=== PATIENT | male | born 1950 | race Caucasian/White ===

== ENCOUNTER 2017-05-07 11:24 | Emergency (ER) ==
[2017-05-07 11:29] VITALS: BP 182/75; TEMP 96.5; BMI 22.1
--- NOTE | 2017-05-07 12:34 | US ---
EXAM: Scrotal ultrasound. History: Left testicular palpable abnormality. Technique: Multiple sonographic images through the scrotum were obtained. Color duplex Doppler was used to interrogate vascular flow. Findings: The right testicle measures 4.4 cm x 1.9 cm x 2.8 cm. Blood flow is documented within the right lisette ticle. No right intratesticular masses are identified. Right epididymis is not hyperemic. Small l eft hydrocele. The left testicle measures 3.5 cm x 2.0 cm x 2.8 cm. Blood flow is documented within the left testi mathieu. No left intratesticular masses are identified. The left epididymis is not hyperemic. Adjacent to the left lateral testicle within the scrotal sac, there is a 2.0 cm x 1.5 cm x 1.6 cm hy poechoic area with surrounding hypervascularity. Small left hydrocele. Left greater than right scrotal skin thickening. Impression: 1. Area of fluid with surrounding hypervascularity within the left scrotal sac, suspicious for absce ss. 2. No abnormality of the testicles. 3. Left greater than right bilateral scrotal skin thickening suggesting cellulitis.
[2017-05-07] MEDS ORDERED: LIDOCAINE 1 % AMP 5 ML (SUTURES) SUBCUT STA (12:56)
--- NOTE | 2017-05-07 12:56 | ED.PDOC ---
General ED Provider: Dr. ANAM BILLINGSLEY-ER Chief Complaint: Abscess Stated Complaint: alphonso got this thing on my scrotum Time Seen by Physician: 11:30 Mode of Arrival: Walk-In Information Source: Patient Exam Limitations: No limitations Nursing and Triage Documentation Reviewed and Agree: Yes Complaint Exam - Complaint/Exam Patient Complains of: Reports: Scrotal swelling Onset/Duration: 3 days Symptoms Are: Still present Timing: Constant Initial Severity: Mild Current Severity: Moderate Location of Pain: Reports: Left, Scrotum Character: Reports: Dull Aggravating: Reports: Palpation Alleviating: Reports: None Associated Signs and Symptoms: Reports: Scrotal pain, Scrotal swelling. Denies : Diaphoresis, Back pain, Fever, Hematuria, Dysuria, Constipation, Blood in stool, Rectal pain, Appetite change, Vomiting, Penile swelling, Penile discharge , Decreased urine output, Increased urine frequency, Increased thirst, Decreased activity, Lethargy Testicular Torsion Risk Factors: Reports: None Surgical Obstruction Risk Factors: Reports: None Abdominal Findings: Present: None Genitalia Exam: Present: Scrotal swelling Differential Diagnoses: Other Review of Systems - Review Of Systems Constitutional: Reports: No symptoms Eyes: Reports: No symptoms Ears, Nose, Mouth, Throat: Reports: No symptoms Respiratory: Reports: No symptoms Cardiac: Reports: No symptoms GI: Reports: No symptoms : Reports: Other (scrotal mass) Musculoskeletal: Reports: No symptoms Skin: Reports: No symptoms Neurological: Reports: No symptoms Endocrine: Reports: No symptoms Hematologic/Lymphatic: Reports: No symptoms All Other Systems: Reviewed and Negative Past Medical History - Past Medical History Previously Healthy: No Endocrine: Reports: None Cardiovascular: Reports: Hypertension Respiratory: Reports: COPD Hematological: Reports: Anemia Gastrointestinal: Reports: None Genitourinary: Reports: None Neuro/Psych: Reports: None Musculoskeletal: Reports: None 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) - Surgical History General Surgical History: Reports: Appendectomy, Orthopedic, Back Surgery (neck ) - Family History Family History: Reports: None - Social History Smoking Status: Former smoker Hx Substance Use: No Alcohol Screening: None Lives: With family Physical Exam - Physical Exam Appearance: Well-appearing, No pain distress, Well-nourished Pain Distress: Mild Eyes: ROGELIO ENT: Ears normal, Nose normal, Oropharynx normal Neck: Supple Respiratory: Airway patent, Breath sounds clear, Breath sounds equal, Respirations nonlabored Cardiovascular: RRR, Pulses normal, No rub, No murmur GI/: Soft, Nontender, Bowel sounds normal, No Organomegaly, Mass (3cm soft fluctuant mass left scotum) Musculoskeletal: Normal strength, ROM intact, No edema, No calf tenderness Skin: Warm Neurological: Sensation intact, Motor intact, Reflexes intact, Cranial nerves intact, Alert, Oriented Psychiatric: Affect appropriate, Mood appropriate Interpretation - Radiology Interpretation Radiology Interpretation By: Radiologist Radiology Results: Positive Exam Interpreted: Other Procedures - Incision and Drainage Site: left scrotum Instrument Used: 15 Blade I & D Procedure: Yes: Hibiclens Prep Lidocaine Used: Yes Type of Drainage: Present: Pus, Blood Irrigated: No Progress: d/w with dr contreras--he advised to go ahead and drain the abscess--he consents --i used 1cc of lidocaine without epi to anesthetize the scrotum--1 15 blade used to open the abscess--5cc of purulent material drained and 7cm of medicated 1/2 inch packing applied and dressing applied Re-Evaluation - Re-Evaluation Time of Re-Evaluation: 13:11 Status: Improved Vital Signs Stable: Yes Pain Level: 1 Appearance: NAD Lungs: Clear Skin: Warm and Dry Neuro: Alert and Oriented X3 CV: RRR Physician Notification - Case Discussed Physician Notified: dr contreras--he advised to go ahead and drain the abscess and he would recheck Time of Notification: 13:00 Critical Care Note - Critical Care Note Total Time (mins): 0 Course - Course Orders, Labs, Meds: Orders Category Date Time Status WOUND CULTURE Stat LAB 05/07/17 12:56 Uncollected Lidocaine HCl/Pf [Lidocaine 1 % Amp 5 ml (Sutures)] MEDS 05/07/17 12:57 Discontinued 5 ml .ROUTE .STK-MED ONE Lidocaine HCl/Pf [Lidocaine 1 % Amp 5 ml (Sutures)] MEDS 05/07/17 12:56 Stat 5 ml SUBCUT ONCE STA ULTRASOUND SCROTUM [U/S SCROTUM] Stat RADS 05/07/17 11:34 Completed Medications Discontinued Medications Generic Name Dose Route Start Last Admin Trade Name Freq PRN Reason Stop Dose Admin Lidocaine HCl 5 ml 05/07/17 12:56 Lidocaine 1 % Amp 5 Ml (Sutures) SUBCUT 05/07/17 12:57 ONCE STA Vital Signs: Temp Pulse Resp BP Pulse Ox 05/07/17 11:24 96.5 F L 71 16 182/75 H 96 Departure - Departure Time of Disposition: 13:12 Disposition: HOME SELF-CARE Discharge Problem: Abscess Instructions: Abscess (ED) Condition: Good Pt referred to PMD for follow-up: Yes Additional Instructions: minocin 100mg bid x 7days--norco 5mg q 4hrs prn pain#10--f/u with dr contreras tomorrow as arranged Allergies/Adverse Reactions: Allergies No Known Allergies Allergy (Unverified 05/07/17 11:31) Home Medications: Ambulatory Orders Lisinopril [Zestril] 10 mg PO DIRECTED 10/11/15 Disposition Discussed With: Patient
[2017-05-07] MEDS ORDERED: LIDOCAINE 1 % AMP 5 ML (SUTURES) ONE (12:57)
== END 2017-05-07 13:30 | disposition home or self-care (01) ==
LOC: ED 11:24
DX: N49.2 Inflammatory disorders of scrotum (principal); I10 Essential (primary) hypertension
CPT/HCPCS: 87070; 99283

== ENCOUNTER 2024-07-10 19:59 | Inpatient (IN) ==
--- NOTE | 2024-07-10 20:46 | ED.PDOC ---
General ED Provider: Dr. URVASHI YAO MD Chief Complaint: Non-specific Complaint Stated Complaint: History obtained from the daughter as well as the patient who has a history of multiple CVAs x 3, hypertension, heart disease, states over the past 4 to 5 days has had unsteady gait frequent falls due to low blood pressure. Daughter states she held off giving his blood pressure medicine lisinopril 20 mg daily, Coreg 4 mg twice daily and amlodipine 10 mg daily. Patient denies head injury neck pain but complains of lower back pain and left hip pain. Has a chronic cough due to longstanding smoking history denies dyspnea, chest pain, diaphoresis. Patient states he has had frequent falls sustaining multiple abrasions to both forearms elbows. Time Seen by Provider: 07/10/24 20:19 Mode of Arrival: Wheelchair Information Source: Patient and Family Exam Limitations: Clinical condition Primary Care Provider: ANAM BILLINGSLEY Nursing and Triage Documentation Reviewed and Agree: Yes What is Opioid Naive?: *Opioid Naive implies the patient is not already taking opioids or not chronically receiving opioids on a daily basis. *PRN dosing is not "usually" associated with tolerance. *Patients are at higher risk of over-sedation and aspiration. What is Opioid Tolerant?: *Opioid Tolerance implies less than the expected response to an opioid. *Acquired tolerance is defined by the patient taking 60mg of oral morphine daily (or equianalgesic dose of another opioid) for 1 week or more. *Often associated with chronic pain. *May take more than usual dose to achieve desired pain control. Review of Systems Review Of Systems Constitutional: Reports Weakness Eyes: Reports No symptoms Ears, Nose, Mouth, Throat: Reports No symptoms Respiratory: Reports Cough (Chronic cough) Cardiac: Reports No symptoms GI: Reports No symptoms : Reports No symptoms Musculoskeletal: Reports Joint pain (Left hip pain, frequent falls skin tears to both forearms and elbow) Skin: Reports No symptoms Neurological: Reports No symptoms Endocrine: Reports No symptoms Hematologic/Lymphatic: Reports No symptoms All Other Systems: Reviewed and Negative [facility] Medical History (Updated 07/10/24 @ 22:33 by URVASHI YAO MD) Hypertension I10 - Essential (primary) hypertension (ICD-10) AAA (abdominal aortic aneurysm) I71.4 - Abdominal aortic aneurysm, without rupture (ICD-10) Social History Smoking and tobacco status: Current every day smoker Surgical History History of musculoskeletal system surgery right shoulder surgery C-5 surgery Z98.890 - Other specified postprocedural states (ICD-10) Status post appendectomy Z90.49 - Acquired absence of other specified parts of digestive tract (ICD- 10) Physical Exam Physical Exam Appearance: Reports Ill-appearing Ill-appearing: Mild Pain Distress: None Eyes: Reports ROGELIO and Conjunctiva clear ENT: Reports Ears normal, Nose normal and Oropharynx normal Neck: Supple Respiratory: Reports Airway patent, Breath sounds clear (Course breath sounds left base) and Breath sounds equal Cardiovascular: Reports RRR, Pulses normal, No rub and No murmur Musculoskeletal: Reports Limited ROM (Full range of motion bilateral hips without pain discomfort. Patellar reflex intact finger-nose [id number].) and Other (There are multiple skin tears of the pus 2051, 3 there is2 cm in distal right biceps medial aspect.) Skin: Reports Warm, Dry and Normal color Neurological: Reports Sensation intact, Motor intact, Reflexes intact, Cranial nerves intact, Alert and Oriented (GCS-15) Psychiatric: Reports Affect appropriate and Mood appropriate Critical Care Note Critical Care Note Total Critical Care Time (mins): 30 Course Course 07/10/24 21:10 07/10/24 21:10 Orders, Labs, Meds: Lab Review 07/10/24 07/10/24 07/10/24 21:03 21:10 21:15 WBC 10.02 RBC 4.92 Hgb 14.1 Hct 41.8 L MCV 85.0 MCH 28.7 MCHC 33.7 RDW Coeff of [place] 14.9 H Plt Count 186 Immature Gran % (Auto) 0.4 Neut % (Auto) 66.5 Lymph % (Auto) 22.3 [place] % (Auto) 8.3 Eos % (Auto) 2.0 Baso % (Auto) 0.5 Neut # (Auto) 6.7 Lymph # (Auto) 2.2 [place] # (Auto) 0.8 Eos # (Auto) 0.2 Baso # (Auto) 0.1 Immature Gran # (Auto) 0.0 PT 12.7 H INR 1.23 VBG pH 7.45 H VBG pCO2 36 L VBG pO2 52 H VBG HCO3 25.0 VBG O2 Saturation 88.1 H Sodium 131.0 L Potassium 4.52 Chloride 97.0 L Carbon Dioxide 20.9 L Anion Gap 17.62 BUN 57.1 H Creatinine 2.75 H Estimated GFR (MDRD) 23.00 BUN/Creatinine Ratio 20.76 Glucose 134.1 H Calcium 8.89 Magnesium 2.16 Iron 71.1 TIBC 129 L % Saturation 55 Total Bilirubin 0.78 AST 18.0 ALT 13.2 Alkaline Phosphatase 58.7 Troponin I 0.042 NT-Pro-B Natriuret Pep 1410 H Total Protein 6.91 Albumin 4.15 Globulin 2.76 Albumin/Globulin Ratio 1.50 SARS CoV-2 RNA Rapid DEONTE Negative Orders Category Date Time Status EKG-(ED ONLY) Stat CARDIO 07/10/24 20:48 Ordered Ticket Puller [ED VP GLOBAL APPLIED] .ONCE EMERGENCY 07/10/24 20:48 Active CBC W/ AUTO DIFF Stat LAB 07/10/24 21:10 Completed CMP [COMPREHENSIVE METABOLIC PANEL] Stat LAB 07/10/24 21:10 Completed COVID [SARS COV-2 RNA RAPID DEONTE] Stat LAB 07/10/24 21:15 Completed INR [PT WITH INR] Stat LAB 07/10/24 21:10 Completed IRON AND TIBC Stat LAB 07/10/24 21:10 Completed MAGNESIUM Stat LAB 07/10/24 21:10 Completed PROBNP ED [NT-PROBNP(ED)] Stat LAB 07/10/24 21:10 Completed TROPONIN I Stat LAB 07/10/24 21:10 Completed URINALYSIS C & S IF INDICATED Stat LAB 07/10/24 20:45 Uncollected VENOUS BLOOD GAS Stat LAB 07/10/24 21:03 Completed Sodium Chloride 0.9% [Sodium Chloride] 1,000 ml Meds 07/10/24 20:48 Active IV 500 mls/hr CHEST, 1V AP ONLY Stat RADS 07/10/24 20:[address] CERVICAL SPINE W/O CONTRAST Stat RADS 07/10/24 20:[address] HEAD W/O CONTRAST Stat RADS 07/10/24 20:[address] LUMBAR SPINE W/O CONTRAST Stat RADS 07/10/24 20:[address] PELVIS W/O CONTRAST Stat RADS 07/10/24 20:45 Completed Medications Generic Name Dose Route Start Last Admin Trade Name Freq PRN Reason Stop Dose Admin Sodium Chloride 1,000 mls @ 500 mls/hr 07/10/24 20:48 07/10/24 21:44 Sodium Chloride IV 07/10/24 22:47 500 mls/hr .Q2H ONE Administration Vital Signs: Temp Pulse Resp BP Pulse Ox 07/10/24 20:03 98.3 F 83 18 93/49 L 99 Discharge Plan Discharge Patient Disposition: ADMITTED INPATIENT Discharge Problem: Acute hypotension, Acute kidney injury Prescriptions: No Action lisinopril 10 MG tablet 20 mg PO DAILY alprazolam 0.5 mg tablet 0.5 mg PO ONCE PRN (Reason: anxiety) alprazolam 1 mg tablet 1 mg PO ONCE PRN (Reason: anxiety) carvedilol 12.5 mg tablet 25 mg PO BID Linzess 145 mcg capsule 145 mcg PO DAILY PRN (Reason: constipation) amlodipine 5 mg Tablet 10 mg PO DAILY atorvastatin 20 mg tablet 20 mg PO QDAY clopidogrel [Plavix] 75 mg tablet 75 mg PO QDAY Did you review [place] ACTIVE DIRECTORY SPECIALIST for ALL controlled substances?: Not Applicable ED Provider: URVASHI YAO Condition: Stable Physician Progress Note: History obtained from the daughter of the patient patient with history of CVA x 3, hypertension, dysarthria, daughter states over the past 3 to 4 days patient has had frequent falls due to his blood pressure being low. Patient denies headache head injury loss of consciousness neck pain or complaint lower back pain. Patient also complains left hip pain. Denies chest pain diaphoresis palpitations, nausea vomiting diarrhea. 2058-EKG interpretation by myself is consistent with normal sinus rhythm with sinus arrhythmia rate of 76, biatrial lodgment left axis deviation nonspecific ST wave changes noted laterally. Portable chest x-ray interpretation per radiologist consistent with no acute disease, prosthetic aortic valve and aortic stent are grossly unchanged CT scan of the head without intravenous contrast rotation per radiologist shows no acute intracranial normality there is encephalomalacia secondary to remote strokes right frontal and left occipital lobes. Remote corner insult bilateral caudate nuclei. There is severe involutional change of the brain suspecting sequela of microvascular disease. Cervical spine CT without intravenous contrast interpretation radiologist consistent with no acute fracture or traumatic malalignment. There is extensive bilateral carotid arterial vascular calcifications. There is severe degenerative disc disease most pronounced at C5-C6 and C6-C7 with small posterior disc osteophyte complexes. Lumbar spine CT without intravenous contrast interpretation by the radiologist consistent no acute osseous abnormality lumbar spine. There is sent bifurcated aortic stent graft. 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 Laboratory data reviewed CBC and CMP troponin BNP all within normal limit except for a BUN of 57, creatinine 2.7, GFR 23, troponin 0.042 and BNP of 1410. Initial blood pressure 93/49 pulse 83 and had IV hydration of 5 mL normal saline over 1 hour blood pressure improved with blood pressure 117/60 Differential diagnosis: 1) hypotension 2) acute kidney injury Discussed with hospitalist Bebe Pisano at 2230 for inpatient admission
[2024-07-10 21:13] LABS: BASOPHILS # (AUTO) 0.1 K/uL (0-0.2); BASOPHILS % (AUTO) 0.5 % (0.0-3.0); EOSINOPHILS # (AUTO) 0.2 K/ul (0.0-0.7); HEMATOCRIT 41.8 % (42.0-52.0); HEMOGLOBIN 14.1 g/dl (14.0-18.0); IMMATURE GRANULOCYTE % (AUTO) 0.4 % (0.0-5.0); LYMPHOCYTES # (AUTO) 2.2 K/uL (0.60-3.4); LYMPHOCYTES % (AUTO) 22.3 (10.0-50.0); MEAN CORPUSCULAR HEMOGLOBIN 28.7 pg (27.0-31.0); MEAN CORPUSCULAR HGB CONC 33.7 (31.8-35.4); MONOCYTES # (AUTO) 0.8 K/uL (0.4-2.0); MONOCYTES % (AUTO) 8.3 (0-10); NEUTROPHILS # (AUTO) 6.7 K/ul (2.0-6.9); NEUTROPHILS % (AUTO) 66.5 % (42.2-75.2); PLATELET COUNT 186 10^3/uL (140-440); RDW COEFFICIENT OF VARIATION 14.9 % (11.6-14.8); RED BLOOD COUNT 4.92 10^6/ul (4.70-6.10); WHITE BLOOD COUNT 10.02 K/ul (4.2-10.2)
[2024-07-10 21:16] LABS: VBG OXYGEN SATURATION 88.1 (60-80); VBG PH 7.45 (7.30-7.40)
[2024-07-10 21:22] LABS: PROTHROMBIN TIME 12.7 SEC (9.3-11.0)
[2024-07-10 21:25] LABS: IRON 71.1 ug/dL (49-181)
[2024-07-10 21:27] LABS: ALANINE AMINOTRANSFERASE 13.2 U/L (0-50); ALBUMIN 4.15 g/dL (3.5-5.0); ALKALINE PHOSPHATASE 58.7 U/L (56-119); BILIRUBIN,TOTAL 0.78 mg/dL (0.2-1.3); BLOOD UREA NITROGEN 57.1 mg/dL (9-20); CALCIUM 8.89 mg/dL (8.4-10.2); CARBON DIOXIDE 20.9 mmol/L (22-30.0); CREATININE 2.75 mg/dL (0.60-1.10); GLUCOSE 134.1 mg/dL (74-106); POTASSIUM 4.52 mmol/L (3.5-5.1); TOTAL PROTEIN 6.91 g/dL (6.3-8.2)
--- NOTE | 2024-07-10 21:29 | DI ---
EXAM: CHEST RADIOGRAPH TECHNIQUE: Single frontal chest radiograph. COMPARISON: 11/13/2022 HISTORY: Chronic cough FINDINGS: The heart and mediastinum are normal. The lungs and pleural spaces appear within normal limits. No acute abnormality of the bones or soft tissues is identified. The prosthetic aortic valve and aort ic stent are grossly unchanged. IMPRESSION: No evidence of acute disease.
--- NOTE | 2024-07-10 21:34 | CT ---
EXAM: CT OF THE BRAIN WITHOUT CONTRAST CLINICAL INDICATION: Headache. COMPARISON: None. PROCEDURE: Contiguous axial tomographic sections were obtained from the skull base to the vertex. FINDINGS: There is encephalomalacia at the mesial right temporal lobe as well as at the superior nav al right frontal lobe consistent with remote insult/strokes at those locations. No acute intracranial hemorrhage, extra-axial fluid collection, hydrocephalus, mass effect, or midline shift. The ventricl es, cisterns and sulci are normal. Chaparro-white differentiation is maintained. There are severe patchy areas of hypodensity in the periventricular white matter, nonspecific but mos t commonly encountered in the setting of chronic microvascular disease. Sub-centimeter hypodense foc i consistent with remote lacunar insults bilateral caudate heads. The visualized paranasal sinuses and mastoid air cells are clear. The visualized portions of the don bes and orbits appear normal. No acute calvarial abnormalities are seen. IMPRESSION: 1. No acute intracranial abnormality. 2. 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 Remote lacu terrence insult bilateral caudate nuclei. 3. Severe involutional change of the brain and suspected sequelae of microvascular disease. All CT scans are performed using dose optimization techniques as appropriate to the performed exam an d include at least one of the following: Automated exposure control, adjustment of the mA and/or kV according t o size, and the use of iterative reconstruction technique.
[2024-07-10 21:39] LABS: TROPONIN I 0.042 ng/ml (0.0000-0.120)
--- NOTE | 2024-07-10 21:40 | CT ---
EXAM: CT CERVICAL SPINE WITHOUT CONTRAST HISTORY: Trauma. Neck pain. TECHNIQUE: Computed tomography (CT) of the cervical spine was performed according to standard protoco l without intravenous contrast.2-D coronal and sagittal reformatted images were obtained from the axi al source images. Contrast Dose: None. CT Dose Reduction Techniques Performed: Yes. COMPARISON: None. FINDINGS: The C1 ring is intact. Moderate to severe left foraminal narrowing at C3-4, bilateral mode rate to severe foraminal narrowing at C4-5 through C6-7. The prevertebral soft tissues are normal. There is grossly normal cervical alignment. Vertebral body heights are maintained. Multilevel severe degenerative disc disease most pronounced at C5-6 and C6-7 with small posterior dis c osteophyte complexes. There is multilevel mild spinal canal stenosis. No evidence of epidural hem atoma. The facet joints articulate normally. No locked or jumped facets. The posterior elements are without gross fracture. Scattered facet degeneration is noted. Bilateral C2-C4 fusion of the facet joints. The dens is intact. Lateral masses of C1 and C2 articulate normally. Scattered uncovertebral arthriti c changes are present. Regional soft tissues are without acute abnormality. No apical pneumothorax. Heavy atherosclerotic ca lcifications of the carotid bulbs and proximal internal carotid arteries bilaterally. IMPRESSION: 1. No acute fracture or traumatic malalignment. Degenerative sequelae as detailed above. 2. Extensive bilateral carotid arterial vascular calcifications, the patient may benefit from routine outpatient carotid duplex ultrasound. All CT scans are performed using dose optimization techniques as appropriate to the performed exam an d include at least one of the following: Automated exposure control, adjustment of the mA and/or kV according t o size, and the use of iterative reconstruction technique.
[2024-07-10] MEDS: SODIUM CHLORIDE 1,000 ML IV ONE (21:44)
--- NOTE | 2024-07-10 21:47 | CT ---
EXAM: CT OF THE LUMBAR SPINE WITHOUT CONTRAST History: Lower back trauma. Technique: Multiplanar CT images through the lumbar spine were obtained without the administration o f IV contrast FINDINGS: Atherosclerotic vascular calcifications. Bifurcating aortic stent graft. Colonic diverti culosis. No acute fracture or subluxation of the lumbar spine. No suspicious lytic or blastic osseous lesions . Mild to moderate multilevel disc space narrowing. Bony spinal canal is not significantly compromi sed. There is no significant neural foraminal narrowing. Impression: No acute osseous abnormality of the lumbar spine All CT scans are performed using dose optimization techniques as appropriate to the performed exam an d include at least one of the following: Automated exposure control, adjustment of the mA and/or kV according t o size, and the use of iterative reconstruction technique.
--- NOTE | 2024-07-10 21:54 | CT ---
EXAM: CT PELVIS HISTORY: Fall, left hip pain TECHNIQUE: CT pelvis without contrast. Multiplanar images. FINDINGS: Compared to 12/29/2021 CT. No fracture or joint dislocation is seen. 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 There is a relatively severe arthropathy of the sacroiliac joints bilatera lly. The visualized bowel has normal gas pattern. There is an aortobi-iliac stent graft noted. No ascites or free air. Urinary bladder is unremarkable. No prostate enlargement, ascites or free air. There is no peripheral soft tissue hematoma. IMPRESSION: 1. No fracture or joint dislocation is seen. 2. 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 There is a relatively severe arthropathy of the sac roiliac joints bilaterally. 3. There is no peripheral soft tissue hematoma. - - - - - All CT scans are performed using dose optimization techniques as appropriate to the performed exam an d include at least one of the following: Automated exposure control, adjustment of the mA and/or kV according t o size, and the use of iterative reconstruction technique.
[2024-07-10 21:55] LABS: SARS COV-2 RNA RAPID NAAT NEGATIVE (NEGATIVE)
[2024-07-10] MEDS ORDERED: TYLENOL PO PRN (22:38)
[2024-07-10] MEDS ORDERED: ZOFRAN 4 MG/2 ML IVP PRN (22:38)
[2024-07-10] MEDS ORDERED: AMITIZA PO PRN (22:44)
[2024-07-10 23:11] LABS: BILIRUBIN,URINE 1+ (NEGATIVE); CLARITY,URINE Clear (CLEAR); COLOR,URINE Yellow (YELLOW); GLUCOSE, URINE (UA) Negative (NEGATIVE); KETONES,URINE Trace (NEGATIVE); LEUKOCYTE ESTERASE ,URINE Negative (NEGATIVE); NITRITE,URINE Negative (NEGATIVE); PROTEIN,URINE Trace (NEGATIVE); URINE, BLOOD Trace-intact (NEGATIVE); UROBILINOGEN,URINE 0.2 (0.2)
[2024-07-10 23:18] LABS: SQUAMOUS EPITHELIAL CELL,UR 0-2 (0-5); URINE RBC, MICROSCOPIC 0-2 (0-2); URINE WBC, MICROSCOPIC 0-2 (0-2)
[2024-07-10 23:52] VITALS: BMI 19.7
[2024-07-11] MEDS: SODIUM CHLORIDE 1,000 ML IV SCH (00:26)
[2024-07-11 05:14] LABS: BASOPHILS # (AUTO) 0.1 K/uL (0-0.2); BASOPHILS % (AUTO) 0.8 % (0.0-3.0); EOSINOPHILS # (AUTO) 0.3 K/ul (0.0-0.7); EOSINOPHILS % (AUTO) 3.4 % (0.0-7.0); HEMATOCRIT 38.4 % (42.0-52.0); HEMOGLOBIN 12.9 g/dl (14.0-18.0); IMMATURE GRANULOCYTE % (AUTO) 0.4 % (0.0-5.0); LYMPHOCYTES # (AUTO) 1.9 K/uL (0.60-3.4); LYMPHOCYTES % (AUTO) 24.5 (10.0-50.0); MEAN CORPUSCULAR HEMOGLOBIN 28.7 pg (27.0-31.0); MEAN CORPUSCULAR HGB CONC 33.6 (31.8-35.4); MEAN CORPUSCULAR VOLUME 85.5 fl (80.0-94.0); MONOCYTES # (AUTO) 0.8 K/uL (0.4-2.0); MONOCYTES % (AUTO) 10.1 (0-10); NEUTROPHILS # (AUTO) 4.7 K/ul (2.0-6.9); NEUTROPHILS % (AUTO) 60.8 % (42.2-75.2); PLATELET COUNT 162 10^3/uL (140-440); RDW COEFFICIENT OF VARIATION 14.9 % (11.6-14.8); RED BLOOD COUNT 4.49 10^6/ul (4.70-6.10); WHITE BLOOD COUNT 7.72 K/ul (4.2-10.2)
[2024-07-11 05:26] LABS: ALANINE AMINOTRANSFERASE 9.7 U/L (0-50); ALBUMIN 3.6 g/dL (3.5-5.0); ALKALINE PHOSPHATASE 60.7 U/L (56-119); ASPARTATE AMINO TRANSFERASE 22.8 U/L (17-59); BILIRUBIN,TOTAL 0.59 mg/dL (0.2-1.3); CALCIUM 8.08 mg/dL (8.4-10.2); CARBON DIOXIDE 21.7 mmol/L (22-30.0); CHLORIDE 103.2 mmol/L (98-107); CREATININE 2.15 mg/dL (0.60-1.10); GLUCOSE 86.6 mg/dL (74-106); POTASSIUM 3.76 mmol/L (3.5-5.1); SODIUM 133.4 mmol/L (134.5-145); TOTAL PROTEIN 6.05 g/dL (6.3-8.2)
[2024-07-11] MEDS: LIPITOR PO SCH (08:28)
[2024-07-11] MEDS: PLAVIX PO SCH (08:28)
[2024-07-11] MEDS: NICODERM 21 MG TD SCH (09:09)
--- NOTE | 2024-07-11 09:39 | PCM ---
Date of Service Date Seen by Provider: 07/11/24 Time Seen by Provider: 08:30 Admit Day/Time Admission Date: 07/10/24 Reason for Admission Chief Complaint: HYPOTENSION,ACUTE KIDNEY INJ Hospital Provider Hospital Provider: DI SAUCEDO, [facility] [place] Primary Care Physician Primary Care Physician: ANAM BILLINGSLEY History of Present Illness History of Present Illness: 74 yo male presented to the ER with hypotension. Patient states that he had fallen 2-3 times over the last couple days and felt weak. Daughter checked his BP last night after the last fall and was found to be in 80s/50s. In ER, his kidney function was found to be markedly elevated from his baseline creatinine of 1.3 at 2.7. Imaging completed to r/o other etiologies and negative. Patient denies dizziness, fever, chills, or other symptoms. Patient admitted to med/surg inpatient for MIGUEL. Case Discussed With Case Discussed With: Patient's case was discussed with the ER Physicians, Dr. Gaffney. [facility] Medical History Hypertension I10 - Essential (primary) hypertension (ICD-10) AAA (abdominal aortic aneurysm) I71.4 - Abdominal aortic aneurysm, without rupture (ICD-10) Surgical History History of musculoskeletal system surgery right shoulder surgery C-5 surgery Z98.890 - Other specified postprocedural states (ICD-10) Status post appendectomy Z90.49 - Acquired absence of other specified parts of digestive tract (ICD- 10) Family History FATHER Lung cancer Mother Alzheimer disease Social History Smoking and tobacco status: Current every day smoker Tobacco: How many years used: 67 Allergies Allergies Allergy/AdvReac Type Severity Reaction Status Date / Time No Known Allergies Allergy Verified 07/10/24 21:27 Current Medications Home Medications lisinopril 10 mg tablet 20 mg PO DAILY 10/11/15 [History Confirmed 07/10/24 Last Taken 07/08/24] amlodipine 5 mg tablet 10 mg PO DAILY 03/01/20 [History Confirmed 07/10/24 Last Taken Unknown] atorvastatin 20 mg tablet 20 mg PO QDAY 05/13/23 [History Confirmed 07/10/24 Last Taken Unknown] clopidogrel 75 mg tablet (Plavix) 75 mg PO QDAY 05/13/23 [History Confirmed 07/10/24 Last Taken Unknown] alprazolam 0.5 mg tablet 0.5 mg PO ONCE PRN anxiety 08/03/23 [History Confirmed 07/10/24 Last Taken Unknown] alprazolam 1 mg tablet 1 mg PO ONCE PRN anxiety 08/03/23 [History Confirmed 0 07/10/24 Last Taken Unknown] carvedilol 12.5 mg tablet 25 mg PO BID 08/03/23 [History Confirmed 07/10/24 Last Taken Unknown] linaclotide 145 mcg capsule (Linzess) 145 mcg PO DAILY PRN constipation 08/03/23 [History Confirmed 07/10/24 Last Taken Unknown] Home Acetaminophen (Acetaminophen 325 Mg Tablet) 650 mg PO Q4H PRN PRN Reason: Mild Pain Alprazolam (Alprazolam 0.5 Mg Tablet) 0.5 mg PO ONCE PRN PRN Reason: Anxiety Atorvastatin Calcium (Atorvastatin Calcium 20 Mg Tablet) 20 mg PO DAILY [facility] Last Admin: 07/11/24 08:28 Dose: 20 mg Clopidogrel Bisulfate (Clopidogrel Bisulfate 75 Mg Tablet) 75 mg PO DAILY [facility] Last Admin: 07/11/24 08:28 Dose: 75 mg Sodium Chloride (Sodium Chloride) 1,000 mls @ 100 mls/hr IV .Q10H [facility] Last Admin: 07/11/24 00:26 Dose: 100 mls/hr Lubiprostone (Lubiprostone 24 Mcg Capsule) 24 mcg PO BID PRN PRN Reason: Constipation Nicotine (Nicotine 21 Mg Patch.Td24) 1 patch TD DAILY [facility] Last Admin: 07/11/24 09:09 Dose: 1 patch Ondansetron HCl (Ondansetron Hcl/Pf 4 Mg/2 Ml Sdv) 4 mg IVP Q6H PRN PRN Reason: Nausea / Vomiting Discontinued Medications Sodium Chloride (Sodium Chloride) 1,000 mls @ 500 mls/hr IV .Q2H ONE Stop: 07/10/24 22:47 Last Infusion: 07/11/24 00:26 Dose: Infused Opioid Naive vs. Tolerant Does Patient Take Opioids?: No Is Patient Opioid Naive?: Yes What is Opioid Naive?: *Opioid Naive implies the patient is not already taking opioids or not chronically receiving opioids on a daily basis. *PRN dosing is not "usually" associated with tolerance. *Patients are at higher risk of over-sedation and aspiration. Is Patient Opioid Tolerant?: No What is Opioid Tolerant?: *Opioid Tolerance implies less than the expected response to an opioid. *Acquired tolerance is defined by the patient taking 60mg of oral morphine daily (or equianalgesic dose of another opioid) for 1 week or more. *Often associated with chronic pain. *May take more than usual dose to achieve desired pain control. Review of Systems Constitutional: Reports No symptoms Head: Reports Normocephalic Eyes: Reports No symptoms Ears: Reports No symptoms Nose: Reports No symptoms Mouth: Reports No symptoms Throat: Reports No symptoms Cardiovascular: Reports Other (Hypotension) Respiratory: Reports No symptoms Gastrointestinal: Reports No symptoms Genitourinary: Reports No Symptoms Musculoskeletal: Reports No symptoms Endocrine: Reports No symptoms Hematology: Reports No symptoms Immunology: Reports No symptoms Neurological: Reports Other (Falling at home) Psychiatric: Reports No symptoms Physical examination Most Recent Vital Signs: Most Recent Vital Signs Temperature 97.7 F 07/11/24 05:30 Temperature Source Temporal Artery Scan 07/11/24 05:30 Temperature Source Infrared 07/10/24 20:03 Pulse Rate 58 L 07/11/24 07:32 Respiratory Rate 18 07/11/24 07:32 Blood Pressure 126/68 07/11/24 05:30 Blood Pressure Mean 87 07/11/24 05:30 Blood Pressure Left Arm 122/71 07/10/24 23:35 Blood Pressure Location Left Arm 07/11/24 05:30 Blood Pressure Position Sitting 07/11/24 05:30 O2 Sat by Pulse Oximetry 99 07/11/24 05:30 Oxygen Delivery Method Room Air 07/11/24 07:32 Height 5 ft 9 in 07/10/24 23:35 Weight 133 lb 9.6 oz 07/10/24 23:35 Telemetry Type Remote Telemetry 07/11/24 07:00 Telemetry Monitoring Continues 07/11/24 07:00 Telemetry Heart Rate 57 L 07/11/24 07:00 EKG OH Interval 0.18 07/11/24 07:00 EKG QRS Interval 0.12 H 07/11/24 07:00 Telemetry Strip Reading SB with BBB 07/11/24 07:00 Appearance: Positive No Apparent Distress and Alert and Oriented x3 Skin: Positive Warm HEENT: Positive Normocephalic and PERRLA Neck: Positive Supple and Midline Trachea Chest/Lungs: Positive Symmetrical With Equal Breath Sounds, Clear to Auscultation Bilaterally and Good Air Movement all 4 Lung [place] Heart: Positive RRR and Pulses Normal GI/: Positive Soft, Nontender, Bowel Sounds Normal and No Distention Musculoskeletal: Positive Not Examined Extremities: Positive Intact Peripheral Pulses, Stable Joints Without Laxity and Good ROM in All Joints Neurological: Positive Sensation Intact, Motor intact, Alert and Oriented Labs This Visit Labs This Visit: Labs This Visit 07/10/24 07/10/24 07/10/24 21:03 21:10 21:15 WBC 10.02 RBC 4.92 Hgb 14.1 Hct 41.8 L MCV 85.0 MCH 28.7 MCHC 33.7 RDW Coeff of Clover 14.9 H Plt Count 186 Immature Gran % (Auto) 0.4 Neut % (Auto) 66.5 Lymph % (Auto) 22.3 [place] % (Auto) 8.3 Eos % (Auto) 2.0 Baso % (Auto) 0.5 Neut # (Auto) 6.7 Lymph # (Auto) 2.2 [place] # (Auto) 0.8 Eos # (Auto) 0.2 Baso # (Auto) 0.1 Immature Gran # (Auto) 0.0 PT 12.7 H INR 1.23 VBG pH 7.45 H VBG pCO2 36 L VBG pO2 52 H VBG HCO3 25.0 VBG O2 Saturation 88.1 H Sodium 131.0 L Potassium 4.52 Chloride 97.0 L Carbon Dioxide 20.9 L Anion Gap 17.62 BUN 57.1 H Creatinine 2.75 H Estimated GFR (MDRD) 23.00 BUN/Creatinine Ratio 20.76 Glucose 134.1 H Calcium 8.89 Magnesium 2.16 Iron 71.1 TIBC 129 L % Saturation 55 Total Bilirubin 0.78 AST 18.0 ALT 13.2 Alkaline Phosphatase 58.7 Troponin I 0.042 NT-Pro-B Natriuret Pep 1410 H Total Protein 6.91 Albumin 4.15 Globulin 2.76 Albumin/Globulin Ratio 1.50 Urine Color Urine Clarity Urine pH Ur Specific [place] Urine Protein Urine Glucose (UA) Urine Ketones Urine Blood Urine Nitrite Urine Bilirubin Urine Urobilinogen Ur Leukocyte Esterase Urine Microscopic RBC Urine Microscopic WBC Ur Squamous Epith Cells SARS CoV-2 RNA Rapid DEONTE Negative 07/10/24 07/11/24 23:05 05:09 WBC 7.72 RBC 4.49 L Hgb 12.9 L Hct 38.4 L MCV 85.5 MCH 28.7 MCHC 33.6 RDW Coeff of [place] 14.9 H Plt Count 162 Immature Gran % (Auto) 0.4 Neut % (Auto) 60.8 Lymph % (Auto) 24.5 [place] % (Auto) 10.1 H Eos % (Auto) 3.4 Baso % (Auto) 0.8 Neut # (Auto) 4.7 Lymph # (Auto) 1.9 [place] # (Auto) 0.8 Eos # (Auto) 0.3 Baso # (Auto) 0.1 Immature Gran # (Auto) 0.0 PT INR VBG pH VBG pCO2 VBG pO2 VBG HCO3 VBG O2 Saturation Sodium 133.4 L Potassium 3.76 Chloride 103.2 Carbon Dioxide 21.7 L Anion Gap 12.26 BUN 51.0 H Creatinine 2.15 H D Estimated GFR (MDRD) 30.00 BUN/Creatinine Ratio 23.72 Glucose 86.6 Calcium 8.08 L Magnesium Iron TIBC % Saturation Total Bilirubin 0.59 AST 22.8 ALT 9.7 Alkaline Phosphatase 60.7 Troponin I NT-Pro-B Natriuret Pep Total Protein 6.05 L Albumin 3.60 Globulin 2.45 Albumin/Globulin Ratio 1.46 Urine Color Yellow Urine Clarity Clear Urine pH 5.0 Ur Specific [place] >=1.030 Urine Protein Trace H Urine Glucose (UA) Negative Urine Ketones Trace H Urine Blood Trace-intact H Urine Nitrite Negative Urine Bilirubin 1+ H Urine Urobilinogen 0.2 Ur Leukocyte Esterase Negative Urine Microscopic RBC 0-2 Urine Microscopic WBC 0-2 Ur Squamous Epith Cells 0-2 SARS CoV-2 RNA Rapid DEONTE Imaging Imaging: EXAM: CHEST RADIOGRAPH FINDINGS: The heart and mediastinum are normal. The lungs and pleural spaces appear within normal limits. No acute abnormality of the bones or soft tissues is identified. The prosthetic aortic valve and aortic stent are grossly unchanged. IMPRESSION: No evidence of acute disease. EXAM: CT OF THE BRAIN WITHOUT CONTRAST FINDINGS: There is encephalomalacia at the mesial right temporal lobe as well as at the superior mesial right frontal lobe consistent with remote insult/strokes at those locations. No acute intracranial hemorrhage, extra-axial fluid collection, hydrocephalus, mass effect, or midline shift. The ventricles, cisterns and sulci are normal. Chaparro-white differentiation is maintained. There are severe patchy areas of hypodensity in the periventricular white matter, nonspecific but most commonly encountered in the setting of chronic microvascular disease. Sub-centimeter hypodense foci consistent with remote lacunar insults bilateral caudate heads. The visualized paranasal sinuses and mastoid air cells are clear. The visualized portions of the globes and orbits appear normal. No acute calvarial abnormalities are seen. IMPRESSION: 1. No acute intracranial abnormality. 2. 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 Remote lacunar insult bilateral caudate nuclei. 3. Severe involutional change of the brain and suspected sequelae of microvascular disease. EXAM: CT PELVIS FINDINGS: Compared to 12/29/2021 CT. No fracture or joint dislocation is seen. 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 There is a relatively severe arthropathy of the sacroiliac joints bilaterally. The visualized bowel has normal gas pattern. There is an aortobi-iliac stent graft noted. No ascites or free air. Urinary bladder is unremarkable. No prostate enlargement, ascites or free air. There is no peripheral soft tissue hematoma. IMPRESSION: 1. No fracture or joint dislocation is seen. 2. 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 There is a relatively severe arthropathy of the sacroiliac joints bilaterally. 3. There is no peripheral soft tissue hematoma. Review Statement Review Statement: I have independently reviewed and interpreted the labs/EKGs/imaging that were ordered by the ER provider. I have reviewed all outside records that are available currently in our EMR including imaging/notes/labs from previous visits. Plan Plan: 1. MIGUEL - NS@100mL/hr, avoid nephrotoxins/hypotension, osmolalities pending 2. Hyponatremia - mild, osmolalities pending, NS@100mL/hr 3. Hypertension - holding home medications due to hypotension, will resume when able 4. Hyperlipidemia - chronic, continue home medications DVT Prophylaxis: Plavix Time Spent: Greater than 80 minutes spent with patient, 50% of the time spent with this patient was devoted to counseling and coordination of care. [facility] Plannin minutes spent discussing advance care planning. Smoking Cessation: 3-10 minutes spent discussing smoking cessation. Disposition: Admit to: Med/Surg Inpatient Full Code Discussed Plan of Care with Dr. Concepcion Najera. Medications Medication Orders: Medications Ordered Category Date Time Status Acetaminophen [Tylenol] Meds 07/10/24 22:38 Active 650 mg PO Q4H PRN Alprazolam [Xanax] Meds 07/10/24 22:44 Active 0.5 mg PO ONCE PRN Atorvastatin Calcium [Lipitor] Meds 07/11/24 09:00 Active 20 mg PO DAILY Clopidogrel Bisulfate [Plavix] Meds 07/11/24 09:00 Active 75 mg PO DAILY Lubiprostone [Amitiza] Meds 07/10/24 22:44 Active 24 mcg PO BID PRN Nicotine 21 mg [Nicoderm 21 mg] Meds 07/11/24 09:00 Active 1 patch TD DAILY Ondansetron HCl/Pf [Zofran 4 mg/2 ml] Meds 07/10/24 22:38 Active 4 mg IVP Q6H PRN Sodium Chloride 0.9% [Sodium Chloride] 1,000 ml Meds 07/10/24 23:00 Active IV 100 mls/hr
--- NOTE | 2024-07-11 13:13 | DCSUM ---
Admission Date Admission Date: 07/10/24 Discharge Date Discharge Date: 07/12/24 Admission Diagnosis Admission Diagnosis: 1. MIGUEL 2. Hyponatremia 3. Hypertension 4. Hyperlipidemia Discharge Diagnosis Discharge Diagnosis: 1. MIGUEL - Resolved 2. Hyponatremia - Resolved 3. Hypertension - Chronic, stable 4. Hyperlipidemia - Chronic, stable Hospital Provider Hospital Provider: DI SAUCEDO, [facility] [place] Primary Care Physician: ANAM BILLINGSLEY Summary of History and Physical Summary of History and Physical: 74 yo male presented to the ER with hypotension. Patient states that he had fallen 2-3 times over the last couple days and felt weak. Daughter checked his BP last night after the last fall and was found to be in 80s/50s. In ER, his kidney function was found to be markedly elevated from his baseline creatinine of 1.3 at 2.7. Imaging completed to r/o other etiologies and negative. Patient denies dizziness, fever, chills, or other symptoms. Patient admitted to med/surg inpatient for MIGUEL. Hospital Course Subjective: During stay, patient was given NS@100mL/hr. Creatinine gradually improved back to baseline this morning. Osmolalities ordered and pending - send outs. BP no longer hypotensive. Became hypertensive last night, home medication of norvasc given which did not help. 1 dose of hydralazine given this am. Home medications resumed as well. Patient had been bradycardic down into the 40s at times. Patient reported today he had been taking both doses of his coreg in the morning. Likely contributing factor to hypotension and falls. Dose of coreg was lowered to 6.25 mg bid and discussed to be sure to take medications as prescribed and follow instructions on bottles. No further changes to home medications Appearance: Pleasant, No Apparent Distress and Alert HEENT: MMM and Supple CVS: No Murmur Abdomen: Soft, Non-Tender and No Distention Respiratory: No Dyspnea Extremities: No Edema Vital Signs: Most Recent Vital Signs Temperature 97.1 F L 07/11/24 10:00 Temperature Source Temporal Artery Scan 07/11/24 10:00 Temperature Source Infrared 07/10/24 20:03 Pulse Rate 56 L 07/11/24 12:18 Respiratory Rate 16 07/11/24 10:00 Blood Pressure 132/73 07/11/24 12:18 Blood Pressure Mean 92 07/11/24 12:18 Blood Pressure Left Arm 122/71 07/10/24 23:35 Blood Pressure Location Left Arm 07/11/24 12:18 Blood Pressure Position Sitting 07/11/24 12:18 O2 Sat by Pulse Oximetry 96 07/11/24 10:00 Oxygen Delivery Method Room Air 07/11/24 12:18 Height 5 ft 9 in 07/10/24 23:35 Weight 133 lb 9.6 oz 07/10/24 23:35 Telemetry Type Remote Telemetry 07/11/24 12:44 Telemetry Monitoring Continues 07/11/24 12:44 Telemetry Heart Rate 56 L 07/11/24 12:44 EKG NM Interval 0.20 07/11/24 12:44 EKG QRS Interval 0.12 H 07/11/24 12:44 Telemetry Strip Reading SB with BBB 07/11/24 12:44 Imaging: EXAM: CHEST RADIOGRAPH FINDINGS: The heart and mediastinum are normal. The lungs and pleural spaces appear within normal limits. No acute abnormality of the bones or soft tissues is identified. The prosthetic aortic valve and aortic stent are grossly unchanged. IMPRESSION: No evidence of acute disease. EXAM: CT OF THE BRAIN WITHOUT CONTRAST FINDINGS: There is encephalomalacia at the mesial right temporal lobe as well as at the superior mesial right frontal lobe consistent with remote insult/strokes at those locations. No acute intracranial hemorrhage, extra-axial fluid collection, hydrocephalus, mass effect, or midline shift. The ventricles, cisterns and sulci are normal. Chaparro-white differentiation is maintained. There are severe patchy areas of hypodensity in the periventricular white matter, nonspecific but most commonly encountered in the setting of chronic microvascular disease. Sub-centimeter hypodense foci consistent with remote lacunar insults bilateral caudate heads. The visualized paranasal sinuses and mastoid air cells are clear. The visualized portions of the globes and orbits appear normal. No acute calvarial abnormalities are seen. IMPRESSION: 1. No acute intracranial abnormality. 2. 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 Remote lacunar insult bilateral caudate nuclei. 3. Severe involutional change of the brain and suspected sequelae of microvascular disease. EXAM: CT PELVIS FINDINGS: Compared to 12/29/2021 CT. No fracture or joint dislocation is seen. 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 There is a relatively severe arthropathy of the sacroiliac joints bilaterally. The visualized bowel has normal gas pattern. There is an aortobi-iliac stent graft noted. No ascites or free air. Urinary bladder is unremarkable. No prostate enlargement, ascites or free air. There is no peripheral soft tissue hematoma. IMPRESSION: 1. No fracture or joint dislocation is seen. 2. 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 There is a relatively severe arthropathy of the sacroiliac joints bilaterally. 3. There is no peripheral soft tissue hematoma. Lab Results Last 24 Hours: 07/11/24 07/10/24 07/10/24 05:09 23:05 21:15 WBC 7.72 RBC 4.49 L Hgb 12.9 L Hct 38.4 L MCV 85.5 MCH 28.7 MCHC 33.6 RDW Coeff of [place] 14.9 H Plt Count 162 Immature Gran % (Auto) 0.4 Neut % (Auto) 60.8 Lymph % (Auto) 24.5 [place] % (Auto) 10.1 H Eos % (Auto) 3.4 Baso % (Auto) 0.8 Neut # (Auto) 4.7 Lymph # (Auto) 1.9 [place] # (Auto) 0.8 Eos # (Auto) 0.3 Baso # (Auto) 0.1 Immature Gran # (Auto) 0.0 PT INR VBG pH VBG pCO2 VBG pO2 VBG HCO3 VBG O2 Saturation Sodium 133.4 L Potassium 3.76 Chloride 103.2 Carbon Dioxide 21.7 L Anion Gap 12.26 BUN 51.0 H Creatinine 2.15 H D Estimated GFR (MDRD) 30.00 BUN/Creatinine Ratio 23.72 Glucose 86.6 Calcium 8.08 L Magnesium Iron TIBC % Saturation Total Bilirubin 0.59 AST 22.8 ALT 9.7 Alkaline Phosphatase 60.7 Troponin I NT-Pro-B Natriuret Pep Total Protein 6.05 L Albumin 3.60 Globulin 2.45 Albumin/Globulin Ratio 1.46 Urine Color Yellow Urine Clarity Clear Urine pH 5.0 Ur Specific [place] >=1.030 Urine Protein Trace H Urine Glucose (UA) Negative Urine Ketones Trace H Urine Blood Trace-intact H Urine Nitrite Negative Urine Bilirubin 1+ H Urine Urobilinogen 0.2 Ur Leukocyte Esterase Negative Urine Microscopic RBC 0-2 Urine Microscopic WBC 0-2 Ur Squamous Epith Cells 0-2 SARS CoV-2 RNA Rapid DEONTE Negative 07/10/24 07/10/24 21:10 21:03 WBC 10.02 RBC 4.92 Hgb 14.1 Hct 41.8 L MCV 85.0 MCH 28.7 MCHC 33.7 RDW Coeff of [place] 14.9 H Plt Count 186 Immature Gran % (Auto) 0.4 Neut % (Auto) 66.5 Lymph % (Auto) 22.3 [place] % (Auto) 8.3 Eos % (Auto) 2.0 Baso % (Auto) 0.5 Neut # (Auto) 6.7 Lymph # (Auto) 2.2 [place] # (Auto) 0.8 Eos # (Auto) 0.2 Baso # (Auto) 0.1 Immature Gran # (Auto) 0.0 PT 12.7 H INR 1.23 VBG pH 7.45 H VBG pCO2 36 L VBG pO2 52 H VBG HCO3 25.0 VBG O2 Saturation 88.1 H Sodium 131.0 L Potassium 4.52 Chloride 97.0 L Carbon Dioxide 20.9 L Anion Gap 17.62 BUN 57.1 H Creatinine 2.75 H Estimated GFR (MDRD) 23.00 BUN/Creatinine Ratio 20.76 Glucose 134.1 H Calcium 8.89 Magnesium 2.16 Iron 71.1 TIBC 129 L % Saturation 55 Total Bilirubin 0.78 AST 18.0 ALT 13.2 Alkaline Phosphatase 58.7 Troponin I 0.042 NT-Pro-B Natriuret Pep 1410 H Total Protein 6.91 Albumin 4.15 Globulin 2.76 Albumin/Globulin Ratio 1.50 Urine Color Urine Clarity Urine pH Ur Specific [place] Urine Protein Urine Glucose (UA) Urine Ketones Urine Blood Urine Nitrite Urine Bilirubin Urine Urobilinogen Ur Leukocyte Esterase Urine Microscopic RBC Urine Microscopic WBC Ur Squamous Epith Cells SARS CoV-2 RNA Rapid DEONTE Discharge Instructions Discharge Planning: Discharge Planning > 40 minutes If patient is discharged with left ventricular systolic dysfunction: NA Discharged with a beta sary? [] If no, why not? [] Discharged with an hansa/arb? [] If no, why not? [] Diagnosis: Acute Kidney Injury Diet: Regular, continue to drink plenty of fluids Activity: As tolerated Follow-up with PCP in at least 1 week. Medications: Your heart rate was running low during your stay. Changed your Coreg to 6.25 twice a day from 12.5 twice a day Monitor blood pressure prior to taking your blood pressure medications. Discharge Medications: Medications at Discharge (Home Meds & RX) lisinopril 10 mg tablet 20 mg PO DAILY 10/11/15 amlodipine 5 mg tablet 10 mg PO DAILY 03/01/20 atorvastatin 20 mg tablet 20 mg PO QDAY 05/13/23 clopidogrel 75 mg tablet (Plavix) 75 mg PO QDAY 05/13/23 alprazolam 0.5 mg tablet 0.5 mg PO ONCE PRN anxiety 08/03/23 alprazolam 1 mg tablet 1 mg PO ONCE PRN anxiety 08/03/23 carvedilol 12.5 mg tablet 25 mg PO BID 08/03/23 linaclotide 145 mcg capsule (Linzess) 145 mcg PO DAILY PRN constipation 08/03/23 Discharge Plan Discharge Discharge Orders: Discharge Patient (ONCE); Ordered 07/12/24 Ordered By: JORGE ESCOTO Activity Restrictions/Additional Instructions: Diagnosis: Acute Kidney Injury Diet: Regular, continue to drink plenty of fluids Activity: As tolerated Follow-up with PCP in at least 1 week. Medications: Your heart rate was running low during your stay. Changed your Coreg to 6.25 twice a day from 12.5 twice a day Monitor blood pressure prior to taking your blood pressure medications. Instructions: Acute Kidney Injury (GEN) Patient Disposition: HOME WITH FAMILY CARE Prescriptions: New carvedilol 6.25 mg Tablet 6.25 mg PO BID Qty: 60 0RF Continued lisinopril 10 MG tablet 20 mg PO DAILY alprazolam 0.5 mg tablet 0.5 mg PO ONCE PRN (Reason: anxiety) alprazolam 1 mg tablet 1 mg PO ONCE PRN (Reason: anxiety) Linzess 145 mcg capsule 145 mcg PO DAILY PRN (Reason: constipation) amlodipine 5 mg Tablet 10 mg PO DAILY atorvastatin 20 mg tablet 20 mg PO QDAY clopidogrel [Plavix] 75 mg tablet 75 mg PO QDAY Discontinued carvedilol 12.5 mg tablet 25 mg PO BID Did you review [place] [employer] ANALYST for ALL controlled substances?: No Discussed opioids are addictive and Narcan is available by prescription or from pharmacy.: No Condition: Stable Referrals: TALA SPEARS, TAJ,PRODUCT MARKETING EXECUTIVE [REFERRING] - 07/21/24 10:00 am
[2024-07-11 16:27] LABS: BLOOD UREA NITROGEN 43.8 mg/dL (9-20); CALCIUM 8.14 mg/dL (8.4-10.2); CARBON DIOXIDE 22.3 mmol/L (22-30.0); CHLORIDE 102.8 mmol/L (98-107); CREATININE 1.75 mg/dL (0.60-1.10); GLUCOSE 91.2 mg/dL (74-106); POTASSIUM 4.42 mmol/L (3.5-5.1)
[2024-07-11] MEDS: XANAX PO PRN (22:42)
[2024-07-12] MEDS: NORVASC PO ONE (02:38)
[2024-07-12 03:09] LABS: CREATININE, URINE 276.3 mg/dL (Not Estab.)
[2024-07-12 05:45] VITALS: BP 198/92; RESP 16; TEMP 97.4
[2024-07-12 05:45] LABS: BASOPHILS # (AUTO) 0.1 K/uL (0-0.2); BASOPHILS % (AUTO) 0.8 % (0.0-3.0); EOSINOPHILS # (AUTO) 0.2 K/ul (0.0-0.7); HEMATOCRIT 38.1 % (42.0-52.0); HEMOGLOBIN 12.8 g/dl (14.0-18.0); IMMATURE GRANULOCYTE % (AUTO) 0.3 % (0.0-5.0); MEAN CORPUSCULAR HGB CONC 33.6 (31.8-35.4); MEAN CORPUSCULAR VOLUME 86.2 fl (80.0-94.0); MONOCYTES # (AUTO) 0.6 K/uL (0.4-2.0); MONOCYTES % (AUTO) 9.8 (0-10); NEUTROPHILS # (AUTO) 4.2 K/ul (2.0-6.9); NEUTROPHILS % (AUTO) 70.1 % (42.2-75.2); PLATELET COUNT 161 10^3/uL (140-440); RDW COEFFICIENT OF VARIATION 14.7 % (11.6-14.8); RED BLOOD COUNT 4.42 10^6/ul (4.70-6.10)
[2024-07-12 05:59] LABS: ALANINE AMINOTRANSFERASE 10.1 U/L (0-50); ALBUMIN 3.6 g/dL (3.5-5.0); ALKALINE PHOSPHATASE 62.6 U/L (56-119); ASPARTATE AMINO TRANSFERASE 22.8 U/L (17-59); BILIRUBIN,TOTAL 0.83 mg/dL (0.2-1.3); BLOOD UREA NITROGEN 31.2 mg/dL (9-20); CALCIUM 8.56 mg/dL (8.4-10.2); CHLORIDE 107.8 mmol/L (98-107); CREATININE 1.36 mg/dL (0.60-1.10); POTASSIUM 4.05 mmol/L (3.5-5.1); SODIUM 137.6 mmol/L (134.5-145); TOTAL PROTEIN 6.12 g/dL (6.3-8.2)
[2024-07-12] MEDS: HYDRALAZINE HCL IVP ONE (06:12)
[2024-07-12] MEDS ORDERED: AMITIZA PO PRN (08:26)
[2024-07-12] MEDS ORDERED: XANAX PO PRN (08:27)
[2024-07-12] MEDS: ZESTRIL PO SCH (08:32)
[2024-07-12] MEDS: NORVASC PO SCH (08:33)
[2024-07-12] MEDS: COREG PO SCH (08:33)
[2024-07-12] MEDS ORDERED: COREG PO SCH (09:00)
[2024-07-12 10:06] VITALS: PULSE 65
== END 2024-07-12 09:35 | disposition home or self-care (01) | DRG 683 ==
LOC: ED 19:59 → MEDSURG B 22:35
PROVIDERS: ADMIT Hospitalist; ATTEND Nurse Practitioner Family